=== PATIENT | male | born 1960 | race Caucasian/White ===

== ENCOUNTER 2017-07-01 11:47 | Inpatient (IN) ==
--- NOTE | 2017-07-01 11:17 | Anesthesia Evaluation PreOp ---
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 HX Other Medical History: Renal, Diabetes Type II Anesthesia History: No Prior Anesthetic Complications, Past Anesthesia Alcohol Use: none Drug use: none Medications and Allergies Amlodipine Besylate [Amlodipine Besylate] 10 mg PO DAILY 07/01/17 [History] Aspirin [Lo-Dose Aspirin EC] 81 mg PO DAILY 07/01/17 [History] Insulin Glargine,Hum.rec.anlog [Lantus Solostar] 32 unit SQ HS 07/01/17 [History ] Lisinopril [Zestril] 10 mg PO DAILY 07/01/17 [History] Pantoprazole Sodium [Pantoprazole Sodium] 40 mg PO DAILY 07/01/17 [History] Simvastatin [Zocor] 40 mg PO HS 07/01/17 [History] glipiZIDE [Glucotrol] 5 mg PO DAILY 07/01/17 [History] hydroCHLOROthiazide [Hydrochlorothiazide] 25 mg PO DAILY 07/01/17 [History] 3 Allergy/AdvReac Type Severity Reaction Status Date / Time No Known Allergies Allergy Verified 07/01/17 12:23 - Meds/Allergy Pre-op Review Medications Reviewed: Yes Allergies Reviewed: Yes Beta Blockers on Current Med List: No Anesthesia Results - Labs Laboratory Tests 06/22/17 06/22/17 06/22/17 16:05 16:05 16:05 WBC 9.6 Hgb 13.2 Hct 38.6 Plt Count 308 PT 10.3 INR 1.0 APTT 27.4 Sodium 137 Potassium 5.0 H BUN 65 H Creatinine 3.15 H - Imaging EKG: report reviewed (06/22/2017 SINUS TACHYCARDIA NONSPECIFIC T-WAVE ABNORMALITY ABNORMAL RHYTHM ECG) Anesthesia Exam O2 Sat Height 1.75 m Height 1.75 m Height 1.75 m Height 1.75 m Weight 92.986 kg Weight 92.986 kg Weight 97.976 kg Weight 97.976 kg O2 Sat by Pulse Oximetry 98 Vital Signs Temp Pulse Resp BP Pulse Ox 98.1 F 103 18 168/85 98 07/01/17 12:15 07/01/17 12:15 07/01/17 12:15 07/01/17 12:15 07/01/17 12:15 Height: 5'9'' Weight: 205 lbs NPO (# of Hours): 8 Pain Scale: 0 Pain Scale Used: Numeric (1 - 10) - HEENT Pupil (Motor): EOMI Mallampati: II Teeth: Normal, Missing, Prosthesis Denture Type: Upper: Complete, Lower: Partial Oral Opening: Greater than 3 - STEEL WELDER LOC: Oriented STEEL WELDER Motor: Normal RUE, Normal LUE, Normal RLE, Normal LLE, Normal Face STEEL WELDER Sensory: Normal: RUE, LUE, Face, Deficit: RLE, LLE - Cardiac Rhythm: Regular Murmur: Systolic - Pulmonary Breath Sounds: bilateral Clear Respiratory Effort: Symmetrical Anesthesia Assess/Plan ASA Score: 3 Modified Silvino Scale for Level of Consciousness: Cooperative, oriented, and tranquil Anesthetic Plan: General Monitoring Plan: Standard Monitors Recovery Plan: PACU
[2017-07-01] MEDS ORDERED: CeFAZolin Pre 2,000 MG/100 ML 2,000 MG/100 ML BAG IVPB ONE (12:32)
[2017-07-01] MEDS ORDERED: Ringers Solution, Lactated 1,000 ML IVC SCH ×2 (12:45→18:02)
[2017-07-01] MEDS ORDERED: Lidocaine -MPF 2% 2 ML VIAL ONE (13:21)
[2017-07-01] MEDS ORDERED: *HR* Succinylcholine 200 MG/10 ML VIAL IVP ONE (13:21)
[2017-07-01] MEDS ORDERED: *HR* Rocuronium Bromide 50 MG/5 ML VIAL ONE (13:21)
[2017-07-01] MEDS ORDERED: Lidocaine -MPF 4% 5 ML AMPUL ONE (13:22)
[2017-07-01] MEDS ORDERED: Ondansetron 4 MG/2 ML VIAL ONE (13:23)
[2017-07-01] MEDS ORDERED: *HR* Propofol 200 MG/20 ML VIAL IVP ONE (13:23)
[2017-07-01] MEDS ORDERED: Dexamethasone 4 MG/ML VIAL ONE (13:23)
[2017-07-01] MEDS ORDERED: *HR* FentaNYL (PF) 100 MCG/2 ML VIAL ONE (13:24)
[2017-07-01] MEDS ORDERED: *HR* HYDROmorphone (PF) 1 MG/ML SYRINGE IVP PRN (13:28)
[2017-07-01] MEDS ORDERED: *HR* Labetalol 20 MG/4 ML SYRINGE IVP PRN (13:28)
[2017-07-01] MEDS ORDERED: Ondansetron 4 MG/2 ML VIAL IVP ONE (13:28)
[2017-07-01] MEDS ORDERED: Plasma-Lyte A (PH 7.4) 1,000 ML IVC SCH (13:30)
--- NOTE | 2017-07-01 14:09 | History & Physical Report ---
Date of Encounter: 07/01/17 Time of Encounter: 02:00 24 Hour HP Update - Instructions Instructions: If the History and Physical is less than 30 days old and was completed prior to A.M. admission and or procedure and has NOT been updated on calendar day of procedure please complete this update prior to performing procedure. - Update Patient reports changes in Medical Condition: No Changes in examination, assessment, or condition: No Changes in Medication: No Preop tests/diagnostics Reviewed: Yes Pre-Op MRSA Screen: Negative Surgery Remains Indicated: Yes Consent for Planned Operative Procedure(s) Verified: Yes - Pre-Operative Checklist Preoperative Checklist Indicated: Yes Prophylactic Antibiotic Ordered: Yes Home Medications Include Beta Divina: No Beta Divina Taken Today (Day of Surgery): No Beta Divina Taken Yesterday (Day Prior to Surgery): No Is VTE Prophylaxis Indicated?: Yes
[2017-07-01] MEDS ORDERED: *HR* Phenylephrine 10 MG/ML VIAL ONE (14:28)
[2017-07-01] MEDS ORDERED: EPHEDrine 50 MG/ML VIAL ONE (14:31)
[2017-07-01 14:38] LABS: Calcium 10.1 mg/dL (8.6-10.8); Potassium 5.2 mEq/L (3.5-4.5)
--- NOTE | 2017-07-01 17:18 | Orthopedic Operative Note ---
Date of procedure: 07/01/17 Pre-op diagnosis: Spondylolisthesis, lumbar stenosis Post-op diagnosis: same Operation/Findings: Instrumented posterior spinal fusion L5-S1: The patient successfully underwent general endotracheal anesthesia. The patient was given antibiotics prior to the start of the procedure. Compression boots and stockings were used for deep vein thrombosis prophylaxis. A Harper catheter was placed. Leads for neuro monitoring were placed on the upper and lower extremities. This included the cranium. The neuro monitoring personnel confirmed there were satisfactory readings prior to the start of the procedure. The patient was turned prone on the Inder table. The back was prepped and draped in the usual sterile fashion. An incision was was marked and centered over the involved L5 and S1 levels in the mid line. The incision was deepened through the lumbar fascia. Bovie cautery and Gill elevators were used to reflect the paraspinal musculature at the lateral extent of the transverse processes of the involved L5 and S1 levels. Prudence clamps were placed over the L5 spinous process. An intraoperative lateral fluoroscopy graft was obtained. A conversation was held between the surgeon and radiologist and both confirmed we had the correct operative levels. We then placed pedicle screws in standard fashion with the aid of fluoroscopy and anatomic landmarks. Briefly a starter awl was used. A gearshift was subsequently used to enter the prospecting driller hole via a transpedicular route into the vertebral body. The prospecting driller hole was tapped with an undersized instrument, and subsequently four 6.5 x 40 mm pedicle screws were placed bilaterally at the indicated L5 and S1 levels. The screws were tested with the aid of the neurologic monitoring staff via pedicle screw stimulation. All reading suggested there was no significant cortical wall breech. The screws were also evaluated fluoro- graphically and appeared to be in satisfactory position. We then turned our attention to the decompression portion of the procedure. We removed the supraspinous and interspinous ligaments and subsequently the insertion of the ligamentum flavum on the undersurface of the proximal L5 lamina was dislodged with a curette. We then removed the ligamentum flavum as well as undercut the facets at this L5-S1 level to decompress the lateral recesses. We also performed a L5 Causey type laminectomy. After the decompression,which was over and above that which was required to place the interbody graft, the foramen and traversing roots at this level were found to be free and patent. We also took part of the right medial facet in order to aid in the decompression. We then protected the neural elements including the thecal sac and traversing nerve root on the right with a dural retractor. We made an annulotomy into the L5-S1 disc space and then removed the entire disc material using Pituitary instruments. We trialed various size grafts after the endplates were prepared for graft insertion. A 10 x 26 enter body graft fit well within the L5-S1 disc space. We obtained some bone from the right posterior superior iliac spine through us a separate incision and combined with this with the bone which we had saved from the laminectomy portion of the procedure. This autograft bone was first placed in the anterior portion of the L5-S1 disc space and additional bone was placed within the interbody graft spacer. We then placed the interbody graft spacer obliquely across the disc space towards the midline while protecting the neural elements with a root retractor. When the graft was found to be in satisfactory position the nanoelectronics engineer was removed. We then copiously irrigated the wound. We then decorticated the L5 transverse processes as well as the facet joints of the involved L5-S1 levels to aid in the posterolateral fusion. We placed autograft bone in the lateral gutters over these regions. We then placed rods within the screw heads of the involved L5 and S1 levels and first locked the distal screws and then subsequently locked the proximal screws so as to improve and reduce the spondylolisthesis previously seen. We then closed the wound in layers with 1 Vicryl for the fascia, 2-0 Vicryl. Subcutaneous tissue, and Dermabond was used for skin closure. Sterile dressings were placed over the wound. The patient was turned supine on a hospital bed and extubated. All sponge instruments and needle counts were correct at the end of the procedure. The patient tolerated the procedure well without complications. Anesthesia: GETA Surgeon: Kit Andrade Jr Estimated blood loss (cc): 150 Condition: stable Disposition: PACU
--- NOTE | 2017-07-01 17:54 | Anesthesia Evaluation Post Op ---
Date of Encounter: 07/01/17 Time of Encounter: 17:54 - Vital Signs Vital Signs: Vital Signs/O2 Sat, Most Current Temp Pulse Resp BP Pulse Ox 99.2 F 96 16 142/85 97 07/01/17 17:26 07/01/17 17:46 07/01/17 17:46 07/01/17 17:46 07/01/17 17:46 - Lungs Lungs: Clear Ascult./Percussion - Airway Airway: Non-obstructed - Cardiovascular Regular Rate - Mental Status Mental Status: Alert & Oriented, Answers Appropriately - Pain Pain Scale: 3 Pain Scale used: Numeric (1 - 10) - Nausea Vomiting Nausea Vomiting: Not Present - Hydration Hydration: Ice chips, Harper catheter - Discharge PostOp Status: Transfer Patient to floor
[2017-07-01] MEDS ORDERED: Naloxone 0.4 MG/ML INJ IVP PRN (18:02)
[2017-07-01] MEDS: diazePAM 5 MG TABLET PO PRN (19:14)
[2017-07-01] MEDS ORDERED: D5% in Water 1,000 ML IVC PRN (22:16)
[2017-07-01] MEDS ORDERED: Dextrose Gel 15 GM PO PRN ×2 (22:16)
[2017-07-01] MEDS ORDERED: *HR* Dextrose 50 % in Water (Syg) 50 ML SYRINGE IVP PRN (22:16)
[2017-07-01] MEDS: Insulin LISPRO 300 UNITS/3 ML VIAL SQ SCH (23:13)
[2017-07-01] MEDS: Insulin DETEMIR 100 UNIT/ML X5UNITS SQ SCH (23:14)
[2017-07-01] MEDS: *HR* OxyCODONE Immed Rel 5 MG TABLET PO PRN (23:14)
[2017-07-01] MEDS: ceFAZolin 2,000 MG in D5% in Water 100 ML IVPB SCH (23:17)
[2017-07-02 03:47] LABS: Basophils % 0.1 %; Hematocrit 33.6 % (37.5-50.1); Hemoglobin 11.1 g/dL (12.9-16.9); Immature Granulocytes % 0.5 % (0-4); Lymphocytes # 0.7 K/mcL (0.6-4.6); Lymphocytes % 5.9 %; Mean Corpuscular Hemoglobin 27.8 pg (28.0-33.3); Mean Corpuscular Volume 84.2 fL (83.0-100.0); Monocytes # 0.8 K/mcL (0.0-1.3); Monocytes % 6.7 %; Neutrophils # 10.7 K/mcL (1.6-8.9); Platelet Count 198 K/mcL (140-400); Red Blood Count 3.99 M/mcL (4.19-5.50); Red Cell Distribution Width 12.6 % (11.5-14.5); Segmented Neutrophils % 86.8 %
[2017-07-02 04:02] LABS: Potassium 5.7 mEq/L (3.5-4.5)
[2017-07-02] MEDS: ceFAZolin 2,000 MG in D5% in Water 100 ML IVPB SCH (06:37)
[2017-07-02] MEDS: *HR* OxyCODONE Immed Rel 5 MG TABLET PO PRN ×2 (08:30→17:31)
[2017-07-02] MEDS: hydroCHLOROthiazide 25 MG TABLET PO SCH (08:31)
[2017-07-02] MEDS: amLODIPine 5 MG TABLET PO SCH (08:31)
[2017-07-02] MEDS: *HR* GlipiZIDE 5 MG TABLET PO SCH (08:31)
[2017-07-02] MEDS: Insulin LISPRO 300 UNITS/3 ML VIAL SQ SCH ×4 (08:31→21:38)
[2017-07-02] MEDS: Aspirin Enteric Coated 81 MG Tablet PO SCH (08:31)
[2017-07-02] MEDS: diazePAM 5 MG TABLET PO PRN (09:43)
[2017-07-02] MEDS ORDERED: *HR* LORazepam 2 MG/ML VIAL IVP PRN (10:51)
[2017-07-02] MEDS ORDERED: 0.9 % Sodium Chloride 500 ML IVC ONE (12:46)
[2017-07-02] MEDS ORDERED: 0.9 % Sodium Chloride 1,000 ML ONE (12:47)
[2017-07-02] MEDS: 0.9 % Sodium Chloride 1,000 ML IVC SCH (13:25)
[2017-07-02] MEDS: *HR* Morphine 2 MG/ML SYRINGE IVP PRN (19:39)
[2017-07-02] MEDS: Insulin DETEMIR 100 UNIT/ML X5UNITS SQ SCH (21:38)
[2017-07-02] MEDS: Ondansetron 4 MG/2 ML VIAL IVP PRN (23:41)
[2017-07-03] MEDS: *HR* OxyCODONE Immed Rel 5 MG TABLET PO PRN ×3 (04:40→16:51)
[2017-07-03 06:19] LABS: Calcium 9.2 mg/dL (8.6-10.8)
[2017-07-03] MEDS: *HR* GlipiZIDE 5 MG TABLET PO SCH (07:58)
[2017-07-03] MEDS: Aspirin Enteric Coated 81 MG Tablet PO SCH (07:58)
[2017-07-03] MEDS: Insulin LISPRO 300 UNITS/3 ML VIAL SQ SCH ×4 (07:58→20:33)
[2017-07-03] MEDS: 0.9 % Sodium Chloride 1,000 ML IVC SCH ×2 (08:40→16:50)
[2017-07-03] MEDS: diazePAM 5 MG TABLET PO PRN ×2 (09:51→21:17)
--- NOTE | 2017-07-03 10:06 | Spine Progress Note ---
Date of Encounter: 07/03/17 Time of Encounter: 10:06 Subjective Principal diagnosis: Status post lumbar fusion, spondylolisthesis Interval history: The patient is without complaints. Some anxiety. Afebrile vital signs are stable. Incision is clean dry and intact. Neurovascularly intact with regard to bilateral lower extremities. Fires all upper and lower extremity motor groups. Assessment :stable. Plan mobilize ,continue analgesics, anxiolytics , discharge planning. Objective Vital signs: Vital Signs Temp Pulse Resp BP Pulse Ox 07/03/17 07:45 106 97/56 07/03/17 07:23 99.5 F 73 16 116/61 98 07/03/17 00:11 98.3 F 89 17 118/75 96 07/02/17 21:07 98.3 F 100 16 118/77 95 07/02/17 16:45 98.1 F 104 16 119/75 95 07/02/17 13:08 98 16 71/44 93 07/02/17 11:38 98.7 F 98 16 71/44 93 Intake and Output 07/02/17 07/03/17 07/03/17 23:59 07:59 15:59 Intake Total 700 / 700 0 / 0 Output Total 450 / 450 500 / 500 400 / 400 Balance 250 / 250 -500 / -500 -400 / -400 Intake: IV Fluids 700 / 700 0.9 % Sodium Chloride 1, 700 / 700 000 ML @ 125 mls/hr IVC . Q8H [facility] Rx#:[id number] Oral 0 / 0 Output: Urine 450 / 450 500 / 500 400 / 400 Other: # Voids 1 Blood Glucose* 232 170 - Labs CBC & BMP: 07/02/17 03:37 07/03/17 05:12 Labs: Abnormal lab results WBC 12.3 K/mcL (4.3-11.1) H 07/02/17 03:37 RBC 3.99 M/mcL (4.19-5.50) L 07/02/17 03:37 Hgb 11.1 g/dL (12.9-16.9) L 07/02/17 03:37 Hct 33.6 % (37.5-50.1) L 07/02/17 03:37 MCH 27.8 pg (28.0-33.3) L 07/02/17 03:37 Neutrophils # 10.7 K/mcL (1.6-8.9) H 07/02/17 03:37 Sodium 134 mEq/L (136-145) L 07/03/17 05:12 Potassium 5.0 mEq/L (3.5-4.5) H 07/03/17 05:12 BUN 54 mg/dL (8-26) H 07/03/17 05:12 Creatinine 3.23 mg/dL (0.72-1.25) H 07/03/17 05:12 Est GFR ( Amer) 24 (> 60) L 07/03/17 05:12 Est GFR (Non-Af Amer) 20 (> 60) L 07/03/17 05:12 Glucose 153 mg/dL (70-99) H 07/03/17 05:12 POC Glucose 232 (58-89) H 07/02/17 20:16 Consult Discharge Plan - Plan Referrals: Jese Cotto DO [Primary Care Provider] -
--- NOTE | 2017-07-03 10:06 | Spine Progress Note ---
Date of Encounter: 07/02/17 Time of Encounter: 12:30 Subjective Principal diagnosis: Status post lumbar fusion, spondylolisthesis Interval history: The patient is without complaints. Some anxiety. Afebrile vital signs are stable. Dressing is clean dry and intact. Neurovascularly intact with regard to bilateral lower extremities. Fires all upper and lower extremity motor groups. Assessment :stable. Plan mobilize ,continue analgesics, anxiolytics , discharge planning. Objective Vital signs: Vital Signs Temp Pulse Resp BP Pulse Ox 07/03/17 07:45 106 97/56 07/03/17 07:23 99.5 F 73 16 116/61 98 07/03/17 00:11 98.3 F 89 17 118/75 96 07/02/17 21:07 98.3 F 100 16 118/77 95 07/02/17 16:45 98.1 F 104 16 119/75 95 07/02/17 13:08 98 16 71/44 93 07/02/17 11:38 98.7 F 98 16 71/44 93 Intake and Output 07/02/17 07/03/17 07/03/17 23:59 07:59 15:59 Intake Total 700 / 700 0 / 0 Output Total 450 / 450 500 / 500 400 / 400 Balance 250 / 250 -500 / -500 -400 / -400 Intake: IV Fluids 700 / 700 0.9 % Sodium Chloride 1, 700 / 700 000 ML @ 125 mls/hr IVC . Q8H [facility] Rx#:[id number] Oral 0 / 0 Output: Urine 450 / 450 500 / 500 400 / 400 Other: # Voids 1 Blood Glucose* 232 170 - Labs CBC & BMP: 07/02/17 03:37 07/03/17 05:12 Labs: Abnormal lab results WBC 12.3 K/mcL (4.3-11.1) H 07/02/17 03:37 RBC 3.99 M/mcL (4.19-5.50) L 07/02/17 03:37 Hgb 11.1 g/dL (12.9-16.9) L 07/02/17 03:37 Hct 33.6 % (37.5-50.1) L 07/02/17 03:37 MCH 27.8 pg (28.0-33.3) L 07/02/17 03:37 Neutrophils # 10.7 K/mcL (1.6-8.9) H 07/02/17 03:37 Sodium 134 mEq/L (136-145) L 07/03/17 05:12 Potassium 5.0 mEq/L (3.5-4.5) H 07/03/17 05:12 BUN 54 mg/dL (8-26) H 07/03/17 05:12 Creatinine 3.23 mg/dL (0.72-1.25) H 07/03/17 05:12 Est GFR ( Amer) 24 (> 60) L 07/03/17 05:12 Est GFR (Non-Af Amer) 20 (> 60) L 07/03/17 05:12 Glucose 153 mg/dL (70-99) H 07/03/17 05:12 POC Glucose 232 (58-89) H 07/02/17 20:16 Consult Discharge Plan - Plan Referrals: Jese Cotto DO [Primary Care Provider] -
[2017-07-03] MEDS: amLODIPine 5 MG TABLET PO SCH (11:52)
[2017-07-03] MEDS: hydroCHLOROthiazide 25 MG TABLET PO SCH (11:52)
[2017-07-03] MEDS: *HR* Morphine 2 MG/ML SYRINGE IVP PRN ×2 (15:38→20:16)
[2017-07-03] MEDS: Ondansetron 4 MG/2 ML VIAL IVP PRN (16:12)
[2017-07-03] MEDS: Insulin DETEMIR 100 UNIT/ML X5UNITS SQ SCH (20:29)
[2017-07-04] MEDS: *HR* Morphine 2 MG/ML SYRINGE IVP PRN (02:33)
[2017-07-04] MEDS: 0.9 % Sodium Chloride 1,000 ML IVC SCH ×2 (04:09→13:12)
[2017-07-04] MEDS: *HR* OxyCODONE Immed Rel 5 MG TABLET PO PRN (08:15)
[2017-07-04] MEDS: Aspirin Enteric Coated 81 MG Tablet PO SCH (08:16)
[2017-07-04] MEDS: *HR* GlipiZIDE 5 MG TABLET PO SCH (08:16)
[2017-07-04] MEDS: diazePAM 5 MG TABLET PO PRN ×2 (08:16→16:22)
[2017-07-04] MEDS: amLODIPine 5 MG TABLET PO SCH (08:17)
[2017-07-04] MEDS: hydroCHLOROthiazide 25 MG TABLET PO SCH (08:17)
[2017-07-04] MEDS: Insulin LISPRO 300 UNITS/3 ML VIAL SQ SCH ×4 (08:17→21:29)
--- NOTE | 2017-07-04 18:12 | Spine Progress Note ---
Date of Encounter: 07/04/17 Time of Encounter: 18:12 Subjective Principal diagnosis: Status post lumbar fusion, spondylolisthesis Interval history: The patient is without complaints. Some anxiety. Afebrile vital signs are stable. Incision is clean dry and intact. Neurovascularly intact with regard to bilateral lower extremities. Fires all upper and lower extremity motor groups. Assessment :stable. Plan mobilize ,continue analgesics, anxiolytics , discharge planning. Objective Vital signs: Vital Signs Temp Pulse Resp BP Pulse Ox 07/04/17 16:42 98.1 F 107 20 149/73 99 07/04/17 11:14 98.3 F 98 17 142/76 96 07/04/17 08:15 96 07/04/17 08:07 98.4 F 105 18 147/73 95 07/04/17 00:19 98.1 F 98 18 167/80 95 07/03/17 21:02 98.3 F 125 18 177/81 96 Intake and Output 07/04/17 07/04/17 07/04/17 07:59 15:59 23:59 Intake Total 1300 / 1300 1120 / 1120 Output Total 600 / 600 400 / 400 550 / 550 Balance 700 / 700 720 / 720 -550 / -550 Intake: IV Fluids 1000 / 1000 1000 / 1000 0.9 % Sodium Chloride 1, 1000 / 1000 1000 / 1000 000 ML @ 125 mls/hr IVC . Q8H [facility] Rx#:[id number] Oral 300 / 300 120 / 120 Output: Urine 600 / 600 400 / 400 550 / 550 Other: Meal Lunch Percent of Meal Consumed 5% Weight 100.3 kg Blood Glucose* 216 122 Patient Weight 07/04/17 23:59 Weight 100.3 kg - Labs CBC & BMP: 07/02/17 03:37 07/03/17 05:12 Labs: Abnormal lab results WBC 12.3 K/mcL (4.3-11.1) H 07/02/17 03:37 RBC 3.99 M/mcL (4.19-5.50) L 07/02/17 03:37 Hgb 11.1 g/dL (12.9-16.9) L 07/02/17 03:37 Hct 33.6 % (37.5-50.1) L 07/02/17 03:37 MCH 27.8 pg (28.0-33.3) L 07/02/17 03:37 Neutrophils # 10.7 K/mcL (1.6-8.9) H 07/02/17 03:37 Sodium 134 mEq/L (136-145) L 07/03/17 05:12 Potassium 5.0 mEq/L (3.5-4.5) H 07/03/17 05:12 BUN 54 mg/dL (8-26) H 07/03/17 05:12 Creatinine 3.23 mg/dL (0.72-1.25) H 07/03/17 05:12 Est GFR ( Amer) 24 (> 60) L 07/03/17 05:12 Est GFR (Non-Af Amer) 20 (> 60) L 07/03/17 05:12 Glucose 153 mg/dL (70-99) H 07/03/17 05:12 POC Glucose 122 (58-89) H 07/04/17 16:36 Consult Discharge Plan - Plan Referrals: Jese Cotto DO [Primary Care Provider] -
[2017-07-04] MEDS: Insulin DETEMIR 100 UNIT/ML X5UNITS SQ SCH (21:29)
[2017-07-05] MEDS: *HR* OxyCODONE Immed Rel 5 MG TABLET PO PRN ×2 (01:28→08:46)
[2017-07-05] MEDS: Insulin LISPRO 300 UNITS/3 ML VIAL SQ SCH ×2 (07:22→12:33)
[2017-07-05] MEDS: diazePAM 5 MG TABLET PO PRN (08:45)
[2017-07-05] MEDS: hydroCHLOROthiazide 25 MG TABLET PO SCH (08:45)
[2017-07-05] MEDS: Aspirin Enteric Coated 81 MG Tablet PO SCH (08:45)
[2017-07-05] MEDS: *HR* GlipiZIDE 5 MG TABLET PO SCH (08:46)
[2017-07-05] MEDS: amLODIPine 5 MG TABLET PO SCH (08:46)
[2017-07-05 09:59] LABS: BUN/Creatinine Ratio 17 (6-26); eGFR For African Americans 37 (> 60); eGFR For Non-African Americans 30 (> 60)
[2017-07-05 10:03] LABS: Blood Urea Nitrogen 37 mg/dL (8-26)
[2017-07-05 11:24] VITALS: BP 170/86
--- NOTE | 2017-07-05 11:28 | Discharge Summary ---
Date of Encounter: 07/05/17 Time of Encounter: 11:26 - Discharge Diagnosis (1) Spondylolisthesis at L5-S1 level Priority: Primary Status: Chronic (2) Lumbar stenosis Priority: Secondary Status: Chronic - Discharge Medications Prescriptions: OxyCODONE Immed Rel [Roxicodone 5 MG] 5 mg PO Q4HR PRN #60 tab PRN Reason: Severe Pain Home Medications: Amlodipine Besylate 10 mg PO DAILY 07/01/17 [History] Aspirin [Lo-Dose Aspirin EC] 81 mg PO DAILY 07/01/17 [History] Insulin Glargine,Hum.rec.anlog [Lantus Solostar] 32 unit SQ HS 07/01/17 [History ] Lisinopril [Zestril] 10 mg PO DAILY 07/01/17 [History] Pantoprazole Sodium 40 mg PO DAILY 07/01/17 [History] Simvastatin [Zocor] 40 mg PO HS 07/01/17 [History] glipiZIDE [Glucotrol] 5 mg PO DAILY 07/01/17 [History] hydroCHLOROthiazide [Hydrochlorothiazide] 25 mg PO DAILY 07/01/17 [History] OxyCODONE Immed Rel [Roxicodone 5 MG] 5 mg PO Q4HR PRN #60 tab 07/05/17 [Rx] Allergies/Adverse Reactions: 3 Allergy/AdvReac Type Severity Reaction Status Date / Time No Known Allergies Allergy Verified 07/01/17 12:23 Labs on day of discharge: Labs from last 24 hours 07/05/17 07/04/17 07/04/17 09:23 21:19 16:36 BUN 37 H D Creatinine 2.24 H Est GFR ( Amer) 37 L Est GFR (Non-Af Amer) 30 L BUN/Creatinine Ratio 17 POC Glucose 266 H 122 H 07/04/17 11:13 BUN Creatinine Est GFR ( Amer) Est GFR (Non-Af Amer) BUN/Creatinine Ratio POC Glucose 216 H - Impressions ITS Impressions Fluoroscopy 07/01/17 14:28 IMPRESSION: Intraprocedural fluoroscopic spot images as above. See separate procedure report for more information. D/ / Bryan Neff MD / Bryan Neff MD Interpreting Provider: Bryan Neff MD Lumbar Spine X-Ray 07/01/17 14:28 IMPRESSION: Intraprocedural fluoroscopic spot images as above. See separate procedure report for more information. D/ / Bryan Neff MD / Bryan Neff MD Interpreting Provider: Bryan Neff MD Chest X-Ray 07/02/17 12:47 IMPRESSION: 1. No active pulmonary disease. D/ / Tyler Rain MD / Tyler Rain MD Interpreting Provider: Tyler Rain MD Lumbar Spine X-Ray 07/04/17 08:30 IMPRESSION: Postoperative appearance of the spine, status post lumbosacral fusion as above. D/ / Dmitriy Coker MD / Dmitriy Coker MD Interpreting Provider: Dmitriy Coker MD Date of admission: 07/01/17 18:03 Primary care physician: Jese Cotto, Consults: 07/01/17 18:02 Consult to Occupational Therapy [CONS] Routine Comment: Evaluate, develop and implement POC Reason for Consult: Postoperative Consult to Physical Therapy [CONS] Routine Comment: Evaluate, develop and implement POC Reason for Consult: Postoperative Consult to Spine Navigator [CONS] [CONS] Routine 07/01/17 18:24 Consult to Nutrition [CONS] Routine Comment: Consulting Provider: NUTRITION Reason for Dietary Consult: MST Score - Patient Status Disposition: Home, Self-Care Condition: Good Functional capacity at discharge: independent ambulation Overall status at discharge: patient is progressing back to baseline - Discharge Instructions Follow Up With: Jese Cotto DO [Primary Care Provider] - - Diet and Activity Activity: as per physical therapy Diet: advance to your usual diet - Hospital Course Hospital course: Mr. Funk is a 57 year old male The patient had an uneventful postoperative course. Progressed from intravenous analgesic needs to oral analgesic needs only. Remained neurovascularly intact and mobilized satisfactorily. All intraoperative and/or postoperative radiographic studies were satisfactory. Patient is discharged with plan for rehabilitation and follow-up in 2 weeks post discharge on analgesic medication and patient's home medications. - Time Spent with Patient Total time spent providing and/or coordinating discharge services: - VTE Documentation of Mechanical Device: Intermittent pneumatic compression device
== END 2017-07-05 13:20 | disposition home or self-care (01) | DRG 460 ==
LOC: SAMDAY 11:47 → 3NENU 18:03
PROVIDERS: ADMIT Orthopaedic Surgery Orthopaedic Surgery of the Spine; ATTEND Orthopaedic Surgery Orthopaedic Surgery of the Spine

== ENCOUNTER 2022-07-22 14:18 | Inpatient (IN) ==
[2022-07-22] MEDS ORDERED: cefTRIAXone 1,000 MG in Water for inj. (sterile) 10 ML IVP ONE (15:32)
[2022-07-22] MEDS ORDERED: 0.9 % Sodium Chloride 1,000 ML IV ONE ×2 (15:33→16:52)
[2022-07-22] MEDS ORDERED: Piperacillin/Tazobactam 3.375 GM in 0.9 % Sodium Chloride Mini Bag 100 ML IVPB ONE (16:15)
[2022-07-22] MEDS ORDERED: Clindamycin 600 MG/50 ML 600 MG/50 ML IV.SOLN IVPB ONE (16:20)
[2022-07-22] MEDS ORDERED: Iopamidol - 370 500 ML MLS IVP ONE (16:27)
[2022-07-22 16:29] LABS: Hematocrit 29.1 % (37.5-50.1); Red Cell Distribution Width 18.8 % (11.5-14.5)
[2022-07-22 16:31] LABS: Hemoglobin 8.8 g/dL (12.9-16.9); Lymphocytes # 0.6 K/mcL (0.6-4.6); Mean Corpuscular HGB Conc 30.2 g/dL (31.6-35.5); Mean Corpuscular Hemoglobin 26.6 pg (28.0-33.3); Mean Corpuscular Volume 87.9 fL (83.0-100.0); Mean Platelet Volume 9.5 fL (9.4-12.4); Platelet Count 341 K/mcL (140-400); Red Blood Count 3.31 M/mcL (4.19-5.50); White Blood Count 27.8 K/mcL (4.3-11.1)
[2022-07-22 16:37] LABS: INR 1.8; Prothrombin Time 19.8 Seconds (9.4-12.1)
[2022-07-22 16:40] LABS: Activated Partial Thrombo Time 25.3 Seconds (26.0-36.0)
[2022-07-22 16:49] LABS: Albumin 3.1 g/dL (3.5-5.7); Albumin/Globulin Ratio 0.8 (1.1-2.2); Bilirubin,Direct 0.1 mg/dL (0.0-0.2); Bilirubin,Indirect 0.5 mg/dL (0.0-1.0); Bilirubin,Total 0.6 mg/dL (0.3-1.0); Calcium 9.3 mg/dL (8.6-10.3); Globulin 4.1 g/dL (2.4-3.5); Magnesium 1.8 mg/dL (1.6-2.6); Phosphorous 3.3 mg/dL (2.7-4.5); Potassium 5.5 mEq/L (3.5-5.1); Total Protein 7.2 g/dL (6.4-8.9); Troponin I 0.14 ng/mL (< 0.04)
[2022-07-22 16:54] LABS: Monocytes # 1.1 K/mcL (0.0-1.3); Neutrophils # 26.1 K/mcL (1.6-8.9); Platelet Estimate Normal (Normal)
[2022-07-22 18:06] LABS: Bilirubin,Urine Negative (Negative); Blood,Urine Negative (Negative); Clarity,Urine Clear (Clear); Color,Urine Yellow (Yellow); Glucose,Urine (UA) >=1000 mg/dL (Normal); Ketones,Urine Negative (Negative); Leukocyte Esterase,Urine Negative (Negative); Nitrite,Urine Negative (Negative); Protein,Urine 100 mg/dL (Neg-Trace); RBC,Urine 0-3 per hpf (0-3); Squamous Epithelial Cell,Urine Few per hpf (None-Few); Urobilinogen,Urine Normal (Normal)
[2022-07-22] MEDS ORDERED: Naloxone 0.4 MG/ML INJ IVP PRN (18:29)
[2022-07-22] MEDS ORDERED: Ondansetron 4 MG/2 ML VIAL IVP PRN (18:29)
[2022-07-22] MEDS ORDERED: D5% in Water 1,000 ML IVC PRN (18:36)
[2022-07-22] MEDS ORDERED: Dextrose Gel 15 GM/37.5 ML TUBE PO PRN ×2 (18:36)
[2022-07-22] MEDS ORDERED: *HR* Dextrose 50 % in Water (Syg) 50 ML SYRINGE IVP PRN (18:36)
[2022-07-22] MEDS ORDERED: Vancomycin 1,500 MG/265 ML IV.SOLN IVPB SCH (19:00)
[2022-07-22] MEDS ORDERED: Norepinephrine 4 MG/254 ML IV.SOLN IVC SCH (20:15)
[2022-07-22 22:11] LABS: Calcium 8.9 mg/dL (8.6-10.3); Potassium 4.6 mEq/L (3.5-5.1); Troponin I 0.14 ng/mL (< 0.04)
[2022-07-22] MEDS: 0.9 % Sodium Chloride 1,000 ML IVC SCH (22:11)
[2022-07-22 22:12] LABS: Estimated Average Glucose 200 mg/dl; Hemoglobin A1C 8.6 %
[2022-07-23] MEDS: Lactobacillus 1 EACH CAP.SPRINK PO SCH ×3 (00:05→20:01)
[2022-07-23] MEDS: Piperacillin/Tazobactam 3.375 GM in 0.9 % Sodium Chloride Mini Bag 100 ML IVPB SCH ×3 (00:23→20:00)
[2022-07-23] MEDS: Clindamycin 600 MG/50 ML 600 MG/50 ML IV.SOLN IVPB SCH ×3 (00:24→23:26)
[2022-07-23] MEDS: Insulin LISPRO 300 UNITS/3 ML VIAL SUBQ SCH ×4 (00:25→17:40)
[2022-07-23 00:49] LABS: Adenovirus F 40/41 PCR Not detected (Not detect); Astrovirus PCR Not detected (Not detect); C.difficile Toxin A/B Gene PCR Not detected (Not detect); Campylobacter by PCR Not detected (Not detect); Cryptosporidium by PCR Not detected (Not detect); Cyclospora cayetanensis PCR Not detected (Not detect); Entamoeba histolytica PCR Not detected (Not detect); Enteroaggregative E.coli(EAEC) Not detected (Not detect); Enteropathogenic E.coli(EPEC) Not detected (Not detect); Enterotoxigenic E.coli (ETEC) Not detected (Not detect); Giardia lamblia PCR Not detected (Not detect); Norovirus GI/GII PCR DETECTED (Not detect); Plesiomonas shigelloides PCR Not detected (Not detect); Salmonella PCR Not detected (Not detect); Shig/EnteroinvasiveE coli EIEC Not detected (Not detect); Shigalike tox-prod E coli STEC Not detected (Not detect); Vibrio PCR Not detected (Not detect); Vibrio cholerae PCR Not detected (Not detect); Yersinia enterocolitica PCR Not detected (Not detect)
[2022-07-23 00:50] LABS: Rotavirus A PCR Not detected (Not detect); Sapovirus PCR Not detected (Not detect)
[2022-07-23 03:31] LABS: Hematocrit 22.9 % (37.5-50.1); Mean Corpuscular HGB Conc 30.1 g/dL (31.6-35.5); Mean Corpuscular Hemoglobin 26.5 pg (28.0-33.3); Mean Corpuscular Volume 88.1 fL (83.0-100.0); Mean Platelet Volume 9.4 fL (9.4-12.4); Platelet Count 302 K/mcL (140-400); White Blood Count 23.8 K/mcL (4.3-11.1)
[2022-07-23 03:37] LABS: Hemoglobin 6.9 g/dL (12.9-16.9)
[2022-07-23 03:55] LABS: Albumin 2.6 g/dL (3.5-5.7); Albumin/Globulin Ratio 0.8 (1.1-2.2); Bilirubin,Total 0.5 mg/dL (0.3-1.0); Globulin 3.1 g/dL (2.4-3.5); Potassium 4.2 mEq/L (3.5-5.1); Total Protein 5.7 g/dL (6.4-8.9); Troponin I 0.17 ng/mL (< 0.04)
[2022-07-23] MEDS ORDERED: 0.9 % Sodium Chloride 250 ML ONE (06:17)
[2022-07-23] MEDS: FERRIC CITRATE 210 MG PO SCH ×2 (08:21→16:38)
[2022-07-23] MEDS: carvediloL 6.25 MG TABLET PO SCH ×2 (08:22→17:29)
[2022-07-23] MEDS ORDERED: Insulin DETEMIR 100 UNIT/ML X5UNITS SUBQ SCH ×2 (09:00→21:00)
[2022-07-23] MEDS ORDERED: Ethyl Chloride Spray Bottle (104 SPRAY/BOTTLE) TP PRN (10:09)
[2022-07-23] MEDS ORDERED: 0.9 % Sodium Chloride 250 ML IVC PRN (10:09)
[2022-07-23] MEDS ORDERED: 0.9 % Sodium Chloride 2,000 ML PRIME SCH (10:15)
[2022-07-23] MEDS ORDERED: *HR* Rocuronium Bromide 50 MG/5 ML VIAL ONE (12:41)
[2022-07-23] MEDS ORDERED: *HR* FentaNYL (PF) 100 MCG/2 ML VIAL ONE (12:41)
[2022-07-23] MEDS ORDERED: *HR* Midazolam HCl 2 MG/2 ML VIAL ONE (12:41)
[2022-07-23] MEDS ORDERED: Ondansetron 4 MG/2 ML VIAL ONE (12:41)
[2022-07-23] MEDS ORDERED: *HR* Propofol 200 MG/20 ML VIAL IVP ONE (12:41)
[2022-07-23] MEDS ORDERED: Ketamine HCL *QUVA* 50mg (1mL) SYRINGE ONE (12:41)
[2022-07-23] MEDS ORDERED: Vancomycin 1,000 MG VIAL ONE (13:19)
[2022-07-23] MEDS ORDERED: Darbepoetin 100 MCG/0.5 ML SYRINGE SQ SCH (14:45)
[2022-07-23] MEDS: *HR* FentaNYL (PF) 100 MCG/2 ML VIAL IVP PRN ×4 (15:51→16:21)
[2022-07-23] MEDS ORDERED: Warfarin perPT PO PRN ×2 (18:00→21:21)
[2022-07-23] MEDS ORDERED: Ondansetron 4 MG/2 ML VIAL IVP PRN (19:02)
[2022-07-23] MEDS ORDERED: Naloxone 0.4 MG/ML INJ IVP PRN (19:02)
[2022-07-23] MEDS: 0.9 % Sodium Chloride 1,000 ML IVC SCH (19:59)
[2022-07-23] MEDS ORDERED: Piperacillin/Tazobactam 3.375 GM in 0.9 % Sodium Chloride Mini Bag 100 ML IVPB SCH (20:00)
[2022-07-23 20:04] LABS: INR 2.6; Prothrombin Time 28.4 Seconds (9.4-12.1)
[2022-07-23] MEDS ORDERED: *HR* Warfarin 2.5 MG TABLET PO ONE (21:19)
[2022-07-23 22:33] LABS: Hepatitis B Surface Antibody 77.58 mIU/mL; Hepatitis B Surface Antigen Nonreactive (Nonreactive)
[2022-07-24 03:58] LABS: Basophils % 0.1 %; Hematocrit 25.1 % (37.5-50.1); Hemoglobin 7.6 g/dL (12.9-16.9); Immature Granulocytes % 0.5 % (0-4); Lymphocytes # 0.4 K/mcL (0.6-4.6); Lymphocytes % 2.7 %; Mean Corpuscular HGB Conc 30.3 g/dL (31.6-35.5); Mean Corpuscular Hemoglobin 26.9 pg (28.0-33.3); Mean Corpuscular Volume 88.7 fL (83.0-100.0); Mean Platelet Volume 9.7 fL (9.4-12.4); Monocytes # 0.3 K/mcL (0.0-1.3); Monocytes % 1.8 %; Neutrophils # 14.2 K/mcL (1.6-8.9); Platelet Count 319 K/mcL (140-400); Red Blood Count 2.83 M/mcL (4.19-5.50); Red Cell Distribution Width 19.2 % (11.5-14.5); Segmented Neutrophils % 94.9 %; White Blood Count 14.9 K/mcL (4.3-11.1)
[2022-07-24 04:06] LABS: Prothrombin Time 33.7 Seconds (9.4-12.1)
[2022-07-24 04:10] LABS: Calcium 8.6 mg/dL (8.6-10.3); Potassium 5.6 mEq/L (3.5-5.1)
[2022-07-24] MEDS: 0.9 % Sodium Chloride 1,000 ML IVC SCH (04:13)
[2022-07-24] MEDS ORDERED: D5% in Water 1,000 ML IVC PRN (07:30)
[2022-07-24] MEDS ORDERED: Dextrose Gel 15 GM/37.5 ML TUBE PO PRN ×2 (07:30)
[2022-07-24] MEDS ORDERED: *HR* Dextrose 50 % in Water (Syg) 50 ML SYRINGE IVP PRN (07:30)
[2022-07-24] MEDS ORDERED: 0.9 % Sodium Chloride 250 ML IVC PRN (07:39)
[2022-07-24] MEDS ORDERED: Albumin 25% 25gram/100mL 25 GM/100 ML IV.SOLN IVPB PRN (07:39)
[2022-07-24] MEDS ORDERED: 0.9 % Sodium Chloride 2,000 ML PRIME SCH (07:45)
[2022-07-24] MEDS: Clindamycin 600 MG/50 ML 600 MG/50 ML IV.SOLN IVPB SCH (07:47)
[2022-07-24] MEDS: Lactobacillus 1 EACH CAP.SPRINK PO SCH ×2 (07:47→21:22)
[2022-07-24] MEDS: Piperacillin/Tazobactam 3.375 GM in 0.9 % Sodium Chloride Mini Bag 100 ML IVPB SCH (07:47)
[2022-07-24] MEDS: carvediloL 6.25 MG TABLET PO SCH ×2 (08:12→18:04)
[2022-07-24] MEDS: Insulin LISPRO 300 UNITS/3 ML VIAL SUBQ SCH ×3 (08:13→17:00)
[2022-07-24] MEDS: Insulin DETEMIR 100 UNIT/ML X5UNITS SUBQ SCH ×2 (08:17→21:22)
[2022-07-24] MEDS ORDERED: *HR* Warfarin 1 MG TABLET PO ONE (18:00)
[2022-07-25 01:20] LABS: Basophils % 0.1 %; Eosinophils % 0.3 %; Hematocrit 25.3 % (37.5-50.1); Hemoglobin 7.6 g/dL (12.9-16.9); Immature Granulocytes % 0.6 % (0-4); Lymphocytes # 1.3 K/mcL (0.6-4.6); Lymphocytes % 9.4 %; Mean Corpuscular Volume 89.7 fL (83.0-100.0); Mean Platelet Volume 9.4 fL (9.4-12.4); Monocytes # 0.7 K/mcL (0.0-1.3); Neutrophils # 11.4 K/mcL (1.6-8.9); Platelet Count 366 K/mcL (140-400); Red Blood Count 2.82 M/mcL (4.19-5.50); Red Cell Distribution Width 19.1 % (11.5-14.5); Segmented Neutrophils % 84.6 %; White Blood Count 13.5 K/mcL (4.3-11.1)
[2022-07-25 01:33] LABS: INR 4.2; Prothrombin Time 45.8 Seconds (9.4-12.1)
[2022-07-25 01:41] LABS: Calcium 8.6 mg/dL (8.6-10.3); Potassium 4.3 mEq/L (3.5-5.1)
[2022-07-25] MEDS ORDERED: FentaNYL (PF) 1,000 MCG/100 ML IV.SOLN IVC SCH (03:30)
[2022-07-25] MEDS ORDERED: Artificial Tears SOLN 15 ML BOTTLE BOTH EYES SCH (04:00)
[2022-07-25] MEDS ORDERED: Artificial Tears SOLN 15 ML BOTTLE BOTH EYES PRN (04:00)
[2022-07-25] MEDS: Insulin DETEMIR 100 UNIT/ML X5UNITS SUBQ SCH ×2 (08:20→21:28)
[2022-07-25] MEDS: Insulin LISPRO 300 UNITS/3 ML VIAL SUBQ SCH ×3 (08:20→16:34)
[2022-07-25] MEDS: carvediloL 6.25 MG TABLET PO SCH ×2 (08:21→17:53)
[2022-07-25] MEDS: Lactobacillus 1 EACH CAP.SPRINK PO SCH ×2 (08:21→21:28)
[2022-07-25] MEDS ORDERED: Pantoprazole 40 MG VIAL IVP SCH (09:00)
[2022-07-25] MEDS ORDERED: Chlorhexidine Rinse 15 ML MOUTHWASH MM SCH (09:00)
[2022-07-25 10:13] LABS: A.calcoaceticus-baumannii cplx Not Detected (Not Detect); Bacteroides fragilis by PCR Not Detected (Not Detect); Candida albicans by PCR Not Detected (Not Detect); Candida auris by PCR Not Detected (Not Detect); Candida glabrata by PCR Not Detected (Not Detect); Candida krusei by PCR Not Detected (Not Detect); Candida parapsilosis by PCR Not Detected (Not Detect); Candida tropicalis by PCR Not Detected (Not Detect); Crypto. neoformans/gattii PCR Not Detected (Not Detect); Enterobacter cloacae Cmplx PCR Not Detected (Not Detect); Enterobacterales by PCR Not Detected (Not Detect); Enterococcus faecalis by PCR Not Detected (Not Detect); Enterococcus faecium by PCR Not Detected (Not Detect); Escherichia coli by PCR Not Detected (Not Detect); Klebs. pneumoniae group by PCR Not Detected (Not Detect); Klebsiella aerogenes by PCR Not Detected (Not Detect); Klebsiella oxytoca by PCR Not Detected (Not Detect); Proteus by PCR Not Detected (Not Detect); Pseudomonas aeruginosa by PCR Not Detected (Not Detect); Salmonella species by PCR Not Detected (Not Detect); Serratia marcescens by PCR Not Detected (Not Detect); Staph epidermidis by PCR Not Detected (Not Detect); Staph lugdunensis by PCR Not Detected (Not Detect); Staphylococcus aureus by PCR Not Detected (Not Detect); Staphylococcus by PCR Not Detected (Not Detect); Stenotrophomonas maltophilia Not Detected (Not Detect); Streptococcus agalactiae(B)PCR Not Detected (Not Detect); Streptococcus by PCR Not Detected (Not Detect); Streptococcus pneumoniae PCR Not Detected (Not Detect); Streptococcus pyogenes (A) PCR Not Detected (Not Detect)
[2022-07-25] MEDS ORDERED: Ketorolac 30 MG/ML VIAL IVP STA (16:46)
[2022-07-25] MEDS ORDERED: *HR* HYDROmorphone (PF) 1 MG/ML SYRINGE IVP STA (16:54)
[2022-07-25] MEDS ORDERED: 0.9 % Sodium Chloride 500 ML ONE (18:24)
[2022-07-26 03:44] LABS: Basophils % 0.2 %; Eosinophils # 0.1 K/mcL (0.0-0.6); Eosinophils % 0.9 %; Hematocrit 24.1 % (37.5-50.1); Hemoglobin 7.1 g/dL (12.9-16.9); Immature Granulocytes % 0.5 % (0-4); Lymphocytes # 0.7 K/mcL (0.6-4.6); Lymphocytes % 8.3 %; Mean Corpuscular HGB Conc 29.5 g/dL (31.6-35.5); Mean Corpuscular Hemoglobin 26.9 pg (28.0-33.3); Mean Corpuscular Volume 91.3 fL (83.0-100.0); Mean Platelet Volume 9.2 fL (9.4-12.4); Monocytes # 0.4 K/mcL (0.0-1.3); Monocytes % 4.7 %; Neutrophils # 7.5 K/mcL (1.6-8.9); Platelet Count 315 K/mcL (140-400); Red Blood Count 2.64 M/mcL (4.19-5.50); Red Cell Distribution Width 19.6 % (11.5-14.5); Segmented Neutrophils % 85.4 %; White Blood Count 8.8 K/mcL (4.3-11.1)
[2022-07-26 03:56] LABS: INR 2.8; Prothrombin Time 31.2 Seconds (9.4-12.1)
[2022-07-26 03:59] LABS: Calcium 8.3 mg/dL (8.6-10.3); Potassium 5.1 mEq/L (3.5-5.1)
[2022-07-26] MEDS ORDERED: Albumin 25% 25gram/100mL 25 GM/100 ML IV.SOLN IVPB PRN (07:29)
[2022-07-26] MEDS ORDERED: 0.9 % Sodium Chloride 250 ML IVC PRN (07:29)
[2022-07-26] MEDS ORDERED: 0.9 % Sodium Chloride 2,000 ML PRIME SCH (07:30)
[2022-07-26] MEDS: Lactobacillus 1 EACH CAP.SPRINK PO SCH ×2 (07:41→19:47)
[2022-07-26] MEDS: Insulin DETEMIR 100 UNIT/ML X5UNITS SUBQ SCH ×2 (07:42→19:47)
[2022-07-26] MEDS ORDERED: Ketorolac 30 MG/ML VIAL IVP ONE (09:38)
[2022-07-26] MEDS: Insulin LISPRO 300 UNITS/3 ML VIAL SUBQ SCH ×3 (09:56→16:46)
[2022-07-26] MEDS ORDERED: *HR* Warfarin 1 MG TABLET PO ONE (18:00)
[2022-07-26] MEDS: 0.9 % Sodium Chloride 1,000 ML IVC SCH (19:29)
[2022-07-26] MEDS ORDERED: Doxycycline 100 MG CAPSULE PO SCH (21:00)
[2022-07-27 04:19] LABS: Hematocrit 32.7 % (37.5-50.1); Mean Corpuscular HGB Conc 30.3 g/dL (31.6-35.5); Mean Corpuscular Hemoglobin 27.3 pg (28.0-33.3); Mean Corpuscular Volume 90.1 fL (83.0-100.0); Mean Platelet Volume 9.4 fL (9.4-12.4); Platelet Count 277 K/mcL (140-400); Red Blood Count 3.63 M/mcL (4.19-5.50); Red Cell Distribution Width 20.2 % (11.5-14.5); White Blood Count 7.2 K/mcL (4.3-11.1)
[2022-07-27 04:20] LABS: Hemoglobin 9.9 g/dL (12.9-16.9)
[2022-07-27 04:27] LABS: Prothrombin Time 21.7 Seconds (9.4-12.1)
[2022-07-27 04:36] LABS: Calcium 8.4 mg/dL (8.6-10.3); Potassium 4.2 mEq/L (3.5-5.1)
[2022-07-27] MEDS: Lactobacillus 1 EACH CAP.SPRINK PO SCH ×2 (08:34→21:08)
[2022-07-27] MEDS: carvediloL 6.25 MG TABLET PO SCH ×2 (08:34→16:30)
[2022-07-27] MEDS: Insulin LISPRO 300 UNITS/3 ML VIAL SUBQ SCH ×3 (08:45→16:23)
[2022-07-27] MEDS: Insulin DETEMIR 100 UNIT/ML X5UNITS SUBQ SCH ×2 (08:45→21:14)
[2022-07-27] MEDS ORDERED: *HR* Warfarin 3 MG TABLET PO ONE (18:00)
[2022-07-28 06:46] LABS: Basophils % 0.4 %; Eosinophils # 0.3 K/mcL (0.0-0.6); Eosinophils % 3.1 %; Hematocrit 25.3 % (37.5-50.1); Immature Granulocytes % 1.1 % (0-4); Lymphocytes # 1.4 K/mcL (0.6-4.6); Lymphocytes % 13.9 %; Mean Corpuscular Hemoglobin 27.5 pg (28.0-33.3); Mean Corpuscular Volume 91.7 fL (83.0-100.0); Mean Platelet Volume 9.1 fL (9.4-12.4); Monocytes # 0.8 K/mcL (0.0-1.3); Neutrophils # 7.2 K/mcL (1.6-8.9); Platelet Count 321 K/mcL (140-400); Red Blood Count 2.76 M/mcL (4.19-5.50); Segmented Neutrophils % 73.5 %; White Blood Count 9.8 K/mcL (4.3-11.1)
[2022-07-28 06:48] LABS: Hemoglobin 7.6 g/dL (12.9-16.9)
[2022-07-28 06:50] LABS: INR 1.5; Prothrombin Time 16.9 Seconds (9.4-12.1)
[2022-07-28 06:51] LABS: Calcium 8.8 mg/dL (8.6-10.3); Potassium 4.2 mEq/L (3.5-5.1)
[2022-07-28] MEDS ORDERED: 0.9 % Sodium Chloride 250 ML IVC PRN (07:31)
[2022-07-28] MEDS ORDERED: 0.9 % Sodium Chloride 2,000 ML PRIME SCH (07:45)
[2022-07-28] MEDS: Insulin LISPRO 300 UNITS/3 ML VIAL SUBQ SCH ×3 (08:49→17:24)
[2022-07-28] MEDS: carvediloL 6.25 MG TABLET PO SCH ×2 (09:05→18:21)
[2022-07-28] MEDS: Lactobacillus 1 EACH CAP.SPRINK PO SCH ×2 (09:05→19:56)
[2022-07-28] MEDS: Insulin DETEMIR 100 UNIT/ML X5UNITS SUBQ SCH ×2 (09:11→19:56)
[2022-07-28] MEDS: Heparin 25,000UNIT/250ML 1/2NS 25,000 UNIT/250 ML IV.SOLN IVC SCH (10:58)
[2022-07-28] MEDS ORDERED: Lidocaine 4% CREAM (LMX) 5 GM TP PRN (15:09)
[2022-07-28] MEDS ORDERED: *HR* Warfarin 5 MG TABLET PO ONE (18:00)
[2022-07-28] MEDS: Clotrimazole 1% CRM 15 GM TUBE TP SCH (18:23)
[2022-07-28] MEDS: *HR* Heparin 5,000 UNIT/ML VIAL IVP PRN (21:54)
[2022-07-29] MEDS: carvediloL 6.25 MG TABLET PO SCH ×2 (08:06→17:37)
[2022-07-29] MEDS: Lactobacillus 1 EACH CAP.SPRINK PO SCH ×2 (08:06→23:17)
[2022-07-29] MEDS: Insulin LISPRO 300 UNITS/3 ML VIAL SUBQ SCH ×3 (08:07→17:37)
[2022-07-29] MEDS: Insulin DETEMIR 100 UNIT/ML X5UNITS SUBQ SCH ×2 (08:09→23:20)
[2022-07-29 08:47] LABS: INR 1.5; Prothrombin Time 16.5 Seconds (9.4-12.1)
[2022-07-29] MEDS: Clotrimazole 1% CRM 15 GM TUBE TP SCH (10:14)
[2022-07-29] MEDS: Heparin 25,000UNIT/250ML 1/2NS 25,000 UNIT/250 ML IV.SOLN IVC SCH (12:52)
[2022-07-29] MEDS ORDERED: *HR* Warfarin 5 MG TABLET PO ONE (18:00)
[2022-07-29] MEDS: *HR* Heparin 5,000 UNIT/ML VIAL IVP PRN (19:16)
[2022-07-30] MEDS: Heparin 25,000UNIT/250ML 1/2NS 25,000 UNIT/250 ML IV.SOLN IVC SCH ×2 (00:02→18:42)
[2022-07-30] MEDS ORDERED: 0.9 % Sodium Chloride 250 ML IVC PRN (07:25)
[2022-07-30] MEDS: Insulin LISPRO 300 UNITS/3 ML VIAL SUBQ SCH ×3 (09:48→16:32)
[2022-07-30] MEDS: Insulin DETEMIR 100 UNIT/ML X5UNITS SUBQ SCH ×2 (09:52→21:27)
[2022-07-30 10:07] LABS: Basophils % 0.5 %; Eosinophils # 0.3 K/mcL (0.0-0.6); Eosinophils % 3.5 %; Hemoglobin 7.7 g/dL (12.9-16.9); Immature Granulocytes % 1.8 % (0-4); Lymphocytes # 1.3 K/mcL (0.6-4.6); Mean Corpuscular HGB Conc 29.6 g/dL (31.6-35.5); Mean Corpuscular Hemoglobin 26.9 pg (28.0-33.3); Mean Corpuscular Volume 90.9 fL (83.0-100.0); Mean Platelet Volume 9.1 fL (9.4-12.4); Monocytes # 0.8 K/mcL (0.0-1.3); Monocytes % 9.9 %; Neutrophils # 5.8 K/mcL (1.6-8.9); Platelet Count 341 K/mcL (140-400); Red Blood Count 2.86 M/mcL (4.19-5.50); Red Cell Distribution Width 20.3 % (11.5-14.5); Segmented Neutrophils % 69.3 %; White Blood Count 8.3 K/mcL (4.3-11.1)
[2022-07-30 10:15] LABS: INR 1.7; Prothrombin Time 18.5 Seconds (9.4-12.1)
[2022-07-30 10:26] LABS: Calcium 9.2 mg/dL (8.6-10.3); Potassium 4.5 mEq/L (3.5-5.1)
[2022-07-30] MEDS: Clotrimazole 1% CRM 15 GM TUBE TP SCH ×3 (11:08→21:25)
[2022-07-30] MEDS: *HR* Heparin 5,000 UNIT/ML VIAL IVP PRN (11:37)
[2022-07-30] MEDS ORDERED: Darbepoetin 100 MCG/0.5 ML SYRINGE SQ SCH (11:45)
[2022-07-30] MEDS: carvediloL 6.25 MG TABLET PO SCH ×2 (16:03→18:39)
[2022-07-30] MEDS: Lactobacillus 1 EACH CAP.SPRINK PO SCH ×2 (16:03→21:24)
[2022-07-30] MEDS ORDERED: *HR* Warfarin 2.5 MG TABLET PO ONE (18:00)
[2022-07-31 06:13] LABS: Heparin anti-factor XA UFH 0.37 IU/mL (0.30-0.70)
[2022-07-31 06:14] LABS: Prothrombin Time 22.3 Seconds (9.4-12.1)
[2022-07-31] MEDS: carvediloL 6.25 MG TABLET PO SCH ×2 (09:09→16:39)
[2022-07-31] MEDS: Lactobacillus 1 EACH CAP.SPRINK PO SCH ×2 (09:10→21:18)
[2022-07-31] MEDS: Clotrimazole 1% CRM 15 GM TUBE TP SCH ×2 (09:11→21:18)
[2022-07-31] MEDS: Heparin 25,000UNIT/250ML 1/2NS 25,000 UNIT/250 ML IV.SOLN IVC SCH (11:00)
[2022-07-31] MEDS: Insulin LISPRO 300 UNITS/3 ML VIAL SUBQ SCH ×2 (13:30→16:40)
[2022-07-31] MEDS ORDERED: *HR* Warfarin 2.5 MG TABLET PO ONE (18:00)
[2022-07-31] MEDS: Insulin DETEMIR 100 UNIT/ML X5UNITS SUBQ SCH (21:18)
[2022-08-01] MEDS: Heparin 25,000UNIT/250ML 1/2NS 25,000 UNIT/250 ML IV.SOLN IVC SCH ×2 (01:21→17:04)
[2022-08-01 06:14] LABS: INR 2.1; Prothrombin Time 23.4 Seconds (9.4-12.1)
[2022-08-01] MEDS: carvediloL 6.25 MG TABLET PO SCH ×2 (08:39→17:03)
[2022-08-01] MEDS: Lactobacillus 1 EACH CAP.SPRINK PO SCH ×2 (08:39→19:52)
[2022-08-01] MEDS: Insulin LISPRO 300 UNITS/3 ML VIAL SUBQ SCH ×3 (08:40→17:02)
[2022-08-01] MEDS: Insulin DETEMIR 100 UNIT/ML X5UNITS SUBQ SCH ×2 (08:45→19:52)
[2022-08-01] MEDS: Clotrimazole 1% CRM 15 GM TUBE TP SCH ×2 (12:36→19:53)
[2022-08-01] MEDS ORDERED: *HR* Warfarin 2.5 MG TABLET PO ONE (18:00)
[2022-08-01] MEDS ORDERED: Acetaminophen 325 MG TABLET PO PRN (18:46)
[2022-08-02 07:01] LABS: Heparin anti-factor XA UFH 0.18 IU/mL (0.30-0.70); INR 2.1; Prothrombin Time 23.1 Seconds (9.4-12.1)
[2022-08-02 07:13] LABS: Calcium 9.5 mg/dL (8.6-10.3); Potassium 4.8 mEq/L (3.5-5.1)
[2022-08-02] MEDS: *HR* Heparin 5,000 UNIT/ML VIAL IVP PRN (07:27)
[2022-08-02] MEDS ORDERED: 0.9 % Sodium Chloride 250 ML IVC PRN (08:13)
[2022-08-02] MEDS: Insulin LISPRO 300 UNITS/3 ML VIAL SUBQ SCH ×3 (09:01→17:23)
[2022-08-02] MEDS: Insulin DETEMIR 100 UNIT/ML X5UNITS SUBQ SCH ×2 (09:45→20:40)
[2022-08-02] MEDS: Heparin 25,000UNIT/250ML 1/2NS 25,000 UNIT/250 ML IV.SOLN IVC SCH ×2 (09:46→23:50)
[2022-08-02] MEDS: Acetaminophen 325 MG TABLET PO PRN (11:47)
[2022-08-02] MEDS: carvediloL 6.25 MG TABLET PO SCH ×2 (13:24→17:23)
[2022-08-02] MEDS: Lactobacillus 1 EACH CAP.SPRINK PO SCH ×2 (13:25→20:40)
[2022-08-02] MEDS: Clotrimazole 1% CRM 15 GM TUBE TP SCH ×2 (14:39→20:45)
[2022-08-02 16:00] LABS: Heparin anti-factor XA UFH 0.51 IU/mL (0.30-0.70)
[2022-08-02 16:01] LABS: INR 2.2
[2022-08-02] MEDS ORDERED: *HR* Warfarin 5 MG TABLET PO ONE (18:00)
[2022-08-03] MEDS: Acetaminophen 325 MG TABLET PO PRN (05:47)
[2022-08-03] MEDS: carvediloL 6.25 MG TABLET PO SCH (07:58)
[2022-08-03] MEDS: Lactobacillus 1 EACH CAP.SPRINK PO SCH (07:58)
[2022-08-03] MEDS: Insulin LISPRO 300 UNITS/3 ML VIAL SUBQ SCH ×2 (08:08→11:24)
[2022-08-03] MEDS: Clotrimazole 1% CRM 15 GM TUBE TP SCH (08:09)
[2022-08-03 09:53] LABS: Eosinophils # 0.2 K/mcL (0.0-0.6); Hematocrit 25.8 % (37.5-50.1); Hemoglobin 7.6 g/dL (12.9-16.9); Mean Corpuscular HGB Conc 29.5 g/dL (31.6-35.5); Mean Corpuscular Hemoglobin 27.2 pg (28.0-33.3); Mean Corpuscular Volume 92.5 fL (83.0-100.0); Mean Platelet Volume 9.2 fL (9.4-12.4); Platelet Count 311 K/mcL (140-400); Red Blood Count 2.79 M/mcL (4.19-5.50); Red Cell Distribution Width 19.6 % (11.5-14.5); White Blood Count 5.2 K/mcL (4.3-11.1)
[2022-08-03 10:01] LABS: INR 2.7; Prothrombin Time 29.8 Seconds (9.4-12.1)
[2022-08-03 10:09] LABS: Calcium 9.5 mg/dL (8.6-10.3); Potassium 4.4 mEq/L (3.5-5.1)
[2022-08-03 10:14] LABS: Basophils # 0.1 K/mcL (0.0-0.2); Lymphocytes # 0.7 K/mcL (0.6-4.6); Monocytes # 0.7 K/mcL (0.0-1.3); Neutrophils # 3.5 K/mcL (1.6-8.9)
[2022-08-03 10:15] LABS: Anisocytosis 1+ (Not Present); Hypochromasia Present (Not Present); Platelet Estimate Normal (Normal)
[2022-08-03 11:08] VITALS: BP 102/59; PULSE 107; TEMP 98.7; O2SAT 94
[2022-08-03 12:17] LABS: Adenovirus Not Detected (Not Detect); Bordetella Pertussis Not Detected (Not Detect); Chlamydophila pneumoniae Not Detected (Not Detect); Coronavirus 229E Not Detected (Not Detect); Coronavirus HKU1 Not Detected (Not Detect); Coronavirus NL63 Not Detected (Not Detect); Coronavirus OC43 Not Detected (Not Detect); Human Metapneumovirus Not Detected (Not Detect); Human Rhinovirus/Enterovirus Not Detected (Not Detect); Influenza A Subtype 2009 H1 Not Detected (Not Detect); Influenza B Not Detected (Not Detect); Mycoplasma pneumoniae Not Detected (Not Detect); Parainfluenza Virus 1 Not Detected (Not Detect); Parainfluenza Virus 2 Not Detected (Not Detect); Parainfluenza Virus 3 Not Detected (Not Detect); Parainfluenza Virus 4 Not Detected (Not Detect); Respiratory Syncytial Virus Not Detected (Not Detect); SARS-CoV-2 Not Detected (Not Detect)
[2022-08-03] MEDS ORDERED: *HR* LORazepam 0.5 MG TABLET PO STA (15:00)
[2022-08-03] MEDS ORDERED: *HR* Warfarin 2.5 MG TABLET PO ONE (18:00)
[2022-08-04] MEDS ORDERED: Insulin DETEMIR 100 UNIT/ML X5UNITS SUBQ SCH (09:00)
== END 2022-08-03 15:42 | disposition other institution (70) | DRG 474 ==
LOC: EMEROOARM 14:18 → 2NNU 19:44 → SUATTDRO 19:44 → 2NNU 20:59 → 2ANU 07-27 15:34
PROVIDERS: ADMIT General Practice; ATTEND Internal Medicine